=== PATIENT | male | born 1995 | race Caucasian/White ===

== ENCOUNTER 2023-06-19 14:57 | Emergency (ER) | payer OTHER, SELFPAY ==
--- NOTE | ~2023-06-19 | XR_ITS ---
EXAMINATION: XR chest 2V DATE: 06/19/2023 15:28 INDICATION: Chest pain, shortness of breath and intermittent dizziness TECHNIQUE: PA and lateral views of the chest were obtained. COMPARISON: None FINDINGS: The lungs are clear with no focal airspace opacities, pulmonary edema, pleural effusion or pneumothor ax. The cardiomediastinal silhouette is normal. Chronic mild anterior wedging of a midthoracic verteb ral body. IMPRESSION: 1. No acute cardiopulmonary disease. Reviewed, dictated and finalized at location A. RDOUS SUBSTANCES SCIENTIST
--- NOTE | 2023-06-19 14:59 | ECG_ITS ---
Measurements Intervals [place] Rate: 74 P: 39 [place]: 145 QRS: 66 QRSD: 101 T: 24 QT: 367 QTc: 409 Interpretive Statements SINUS RHYTHM INCOMPLETE RIGHT BUNDLE BRANCH BLOCK BORDERLINE ECG NO PREVIOUS ECG AVAILABLE FOR COMPARISON Electronically Signed On 06-19-2023 16:54:47 HANDMADE TILE ARTIST by Max Gastelum D.O.
[2023-06-19 15:00] VITALS: BP 157/92; PULSE 78; RESP 20; TEMP 36.2; O2SAT 100
[2023-06-19 15:19] LABS: Basophils Percent Auto 0.7 % (0.2-1.2); Eosinophils Absolute Auto 0.1 K/mm3 (0-0.3); Eosinophils Percent Auto 1.5 % (0-4.4); Hematocrit 45.2 % (42.0-52.0); Hemoglobin 15.4 g/dL (14.0-18.0); Immature Granulocyte Absolute 0.04 K/mm3 (0.00-0.031); Immature Granulocyte Percent A 0.7 % (0-0.5); Lymphocytes Absolute Auto 2.11 K/mm3 (0.9-3.2); Lymphocytes Percent Auto 34.8 % (18.3-44.2); Mean Corpuscular HGB Conc 34.1 g/dl (32-36); Mean Corpuscular Hemoglobin 29.2 pg (26-34); Mean Corpuscular Volume 85.6 fl (80-100); Mean Platelet Volume 8.4 fl (7.4-10.4); Monocytes Absolute Auto 0.5 K/mm3 (0.1-0.6); Monocytes Percent Auto 8.6 % (2.6-8.5); Neutrophils Absolute Auto 3.3 K/mm3 (1.3-6.7); Neutrophils Percent Auto 53.7 % (45.5-73.1); Platelet Count Result 257 k/mm3 (150-375); Red Blood Count 5.28 M/mm3 (4.6-6.20); Red Cell Distribution Width 12.1 % (11.5-14.5); White Blood Count 6.1 K/mm3 (4.5-10.0)
[2023-06-19 15:29] LABS: Alanine Aminotransferase 50 U/L (6-50); Albumin Level 4.9 g/dL (3.5-5.1); Alkaline Phosphatase 69 U/L (38-126); Anion Gap 10 mmol/L (8-16); Aspartate Amino Transferase 40 U/L (17-59); Bilirubin,Total 0.6 mg/dL (0.2-1.3); Blood Urea Nitrogen 13 mg/dL (9-20); Calcium 9.5 mg/dL (8.4-10.2); Carbon Dioxide 26 mmol/L (22-30); Chloride 103 mmol/L (98-107); Estimated CRCL calculation 158 ml/min; Estimated Glomerular Filt Rate > 60; Glucose 91 mg/dL (65-110); Lipase 154 U/L (23-300); Potassium 4.2 mmol/L (3.4-5.0); Sodium 139 mmol/L (137-145)
[2023-06-19 15:34] LABS: Partial Thromboplastin Time 28.9 SECONDS (22.3-36.8)
[2023-06-19 15:41] LABS: Troponin I < 0.012 ng/mL (0.000-0.034)
[2023-06-19 19:00] VITALS: BP 149/92; PULSE 70; PULSE 79; RESP 18; O2SAT 100
--- NOTE | 2023-06-19 19:15 | ED.CHESTPAIN ---
HPI - Chest Pain General Chief Complaint: Chest Pain Stated Complaint: shortness of breath/cp Time Seen by Provider: 06/19/23 19:02 Source: patient Limitations: no limitations History of Present Illness HPI narrative: Patient is a 27-year-old male presents to the emergency department complaining of chest pain. Patient states he has been having this discomfort since Sunday with associated shortness of breath, noticed it 1st when he was working and it has been constant ever since, low grade intensity, denies any injuries pain the past, sore in the middle of his chest and does not radiate, describes it as an ache, states that the shortness of breath gets worse with exertion but has not noticed anything making his chest discomfort better or worse and he tried Tums without any relief. Patient denies anything regularly getting worse prompting him to come in for further evaluation today rather he called his primary care physician for total bili checked out. 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 and has been taking this for a while without any recent changes in just moved here from [facility] and has established care with a cash processor yet but he did have a [address] on June 01. Patient denies any history of blood clots or unilateral lower extremity swelling. Patient denies tobacco use, history of hypertension, history of diabetes, history of high cholesterol. Patient does admit to an uncle who had a heart attack at 58 years old and otherwise no early heart disease in family members. Patient denies vomiting, diarrhea, melena, hematochezia abdominal pain, diaphoresis, lightheadedness, recent injuries, recent illness, sore throat, nasal congestion, cough. Related Data Allergies Allergy/AdvReac Type Severity Reaction Status Date / Time No Known Allergies Allergy Verified 06/19/23 15:02 Review of Systems Review of Systems: A 10 system review of systems was completed on the patient and is negative except for what is stated in the HPI. Nursing and ancillary documentation was reviewed. PMFSH Comments At time of signature, I have reviewed and agree with nursing past medical, surgical, social and family history unless otherwise noted. Please see the nursing chart for further information. There is no relevant family history pertinent to the presenting complaint. Exam Narrative: CONST: No acute distress. Well nourished. HENMT: Head is normocephalic and atraumatic. Moist mucous membranes. No posterior oropharynx erythema. EYES: No conjunctival icterus, injection, or pallor. PERRL. NECK: No meningeal signs. RESP: Able to speak in full sentences. Normal respiratory effort. CTAB. CARDIO: Regular rate. Regular rhythm. 2+ DP and radial pulses bilaterally. GI: Nondistended. No tenderness to palpation. Soft. : No CVA tenderness to palpation. SKIN: No rashes or lesions noted on exposed skin. NEURO: Oriented x3. Moves all extremities. EXTREM/MSK/BACK: No pedal edema. PSYCH: Normal affect. Course Vital Signs Vital signs: Vital Signs Temperature 97.2 F L 06/19/23 15:00 Pulse Rate 78 06/19/23 15:00 Respiratory Rate 20 06/19/23 15:00 Blood Pressure 157/92 H 06/19/23 15:00 Pulse Oximetry 100 06/19/23 15:00 Temperature 97.2 F L 06/19/23 15:00 Pulse Rate 70 06/19/23 19:00 Respiratory Rate 18 06/19/23 19:00 Blood Pressure 149/92 H 06/19/23 19:00 Pulse Oximetry 100 06/19/23 19:00 MDM - Chest Pain MDM Narrative Medical decision making narrative: Patient presents with the above complaint. Initial vitals are remarkable for no significant abnormalities. Physical examination as noted above. Plan discussed: Aspirin 324 mg p.o., EKG, chest x-ray, laboratory analysis, continuous cardiac monitoring, continuous pulse oximetry. Given that the patient had a recent long distance car ride of 16 hours preceding the onset of the chest discomfo
--- NOTE | 2023-06-19 19:31 | ECG_ITS ---
Measurements Intervals [place] Rate: 72 P: 31 [place]: 152 QRS: 67 QRSD: 109 T: 16 QT: 406 QTc: 447 Interpretive Statements SINUS RHYTHM DELAYED PRECORDIAL R/S TRANSITION NONSPECIFIC T-WAVE ABNORMALITY- INFERIOR LEADS BASELINE ARTIFACT- I, III, AVR, AVL, AVF, V3-V6 BORDERLINE ECG COMPARED TO ECG 06/19/2023 15:13:04 T-WAVE ABNORMALITY NOW PRESENT Electronically Signed On 06-20-2023 7:42:06 SUPPORT ANALYST by Max Gastelum D.O.
[2023-06-19 20:00] LABS: Troponin I < 0.012 ng/mL (0.000-0.034)
[2023-06-19 20:13] LABS: Influenza A QL RT-PCR Negative (Negative); Influenza B QL RT-PCR Negative (Negative); SARS-CoV-2 RNA PCR Negative (Negative)
[2023-06-19 21:01] VITALS: BP 165/102; PULSE 78; RESP 20; O2SAT 100
== END 2023-06-19 21:05 | disposition home or self-care (01) ==
PROVIDERS: Emergency Medicine; Emergency Provider Student in an Organized Health Care Education/Training Program
DX: R07.89 Other chest pain (principal); Z20.822 Contact with and (suspected) exposure to COVID-19
CPT/HCPCS: 36415; 71046; 80053; 83690; 84484; 85025; 85380; 85610; 85730; 87636; 93005; 99284

== ENCOUNTER 2023-08-21 09:56 | Emergency (ER) | payer OTHER, SELFPAY ==
--- NOTE | ~2023-08-21 | XR_ITS ---
EXAMINATION: XR chest 2V DATE: 08/21/2023 10:24 INDICATION: Chest pain and weakness TECHNIQUE: PA and lateral views of the chest are obtained. COMPARISON: 06/19/2023 FINDINGS: The lungs are free of acute opacities. No pleural effusion or pneumothorax. The cardiomedia stinal silhouette is normal. The visualized bones and soft tissues are unremarkable. IMPRESSION: 1. No acute cardiopulmonary abnormality. Reviewed, dictated and finalized at location L. STEWARD
--- NOTE | 2023-08-21 09:57 | ECG_ITS ---
Measurements Intervals [place] Rate: 59 P: 28 [place]: 146 QRS: 66 QRSD: 105 T: 6 QT: 373 QTc: 370 Interpretive Statements SINUS BRADYCARDIA NONSPECIFIC ST & T-WAVE ABNORMALITY- INFERIOR LEADS BORDERLINE ECG COMPARED TO ECG 06/19/2023 19:41:15 SINUS BRADYCARDIA NOW PRESENT Electronically Signed On 08-21-2023 10:49:39 TABLET MACHINE OPERATOR by Max Gastelum D.O.
[2023-08-21 10:07] VITALS: BP 144/77; PULSE 62; RESP 18; TEMP 36.4; O2SAT 100
[2023-08-21 10:14] LABS: Basophils Absolute Auto 0.1 K/mm3 (0.0-0.1); Basophils Percent Auto 0.9 % (0.2-1.2); Eosinophils Absolute Auto 0.1 K/mm3 (0-0.3); Eosinophils Percent Auto 1.7 % (0-4.4); Hematocrit 49.3 % (42.0-52.0); Hemoglobin 16.7 g/dL (14.0-18.0); Immature Granulocyte Absolute 0.02 K/mm3 (0.00-0.031); Immature Granulocyte Percent A 0.3 % (0-0.5); Lymphocytes Absolute Auto 2.54 K/mm3 (0.9-3.2); Lymphocytes Percent Auto 40.2 % (18.3-44.2); Mean Corpuscular HGB Conc 33.9 g/dl (32-36); Mean Corpuscular Hemoglobin 28.8 pg (26-34); Mean Corpuscular Volume 85.1 fl (80-100); Mean Platelet Volume 8.7 fl (7.4-10.4); Monocytes Absolute Auto 0.6 K/mm3 (0.1-0.6); Monocytes Percent Auto 9.7 % (2.6-8.5); Neutrophils Percent Auto 47.2 % (45.5-73.1); Platelet Count Result 264 k/mm3 (150-375); Red Blood Count 5.79 M/mm3 (4.6-6.20); Red Cell Distribution Width 12.4 % (11.5-14.5); White Blood Count 6.3 K/mm3 (4.5-10.0)
[2023-08-21 10:23] LABS: Prothrombin Time 13.4 Seconds (11.1-14.7)
[2023-08-21 10:24] LABS: Partial Thromboplastin Time 29.9 SECONDS (22.3-36.8)
[2023-08-21 10:25] LABS: Alanine Aminotransferase 44 U/L (6-50); Alkaline Phosphatase 66 U/L (38-126); Anion Gap 10 mmol/L (8-16); Aspartate Amino Transferase 29 U/L (17-59); Bilirubin,Total 0.6 mg/dL (0.2-1.3); Blood Urea Nitrogen 10 mg/dL (9-20); Calcium 9.8 mg/dL (8.4-10.2); Carbon Dioxide 24 mmol/L (22-30); Chloride 104 mmol/L (98-107); Estimated CRCL calculation 153 ml/min; Estimated Glomerular Filt Rate > 60; Glucose 104 mg/dL (65-110); Lipase 153 U/L (23-300); Potassium 3.8 mmol/L (3.4-5.0); Sodium 138 mmol/L (137-145)
[2023-08-21 10:36] LABS: Troponin I < 0.012 ng/mL (0.000-0.034)
--- NOTE | 2023-08-21 12:18 | ED.CHESTPAIN ---
HPI - Chest Pain General Chief Complaint: Chest Pain <Jason TYSON Villa - Last Filed: 08/21/23 12:30> Stated Complaint: chest pain <Jason TYSON Villa - Last Filed: 08/21/23 12:30> Time Seen by Provider: 08/21/23 12:18 <Jason TYSON Villa - Last Filed: 08/21/23 12:30> MSE exam was performed at 12:20 p.m.. Warren is a 28-year-old male patient presenting to the emergency room with complaints of left-sided chest discomfort times 4 days. He reports he is also having some fatigue. Denies any URI symptoms. Denies any shortness of breath associated with his chest discomfort. Denies any heavy lifting recently. States he feels extremely fatigued. He does not take any medications on a regular basis. Focused HPI: General: Well-developed, well nourished, in no apparent distress Head: Normocephalic, atraumatic Eyes: Pupils equally round and reactive to light bilaterally, EOM intact, sclera and conjunctive clear, no discharge, lids normal Ears: TMs intact and clear, ear canals clear, no drainage, grossly hearing normal. Nose: Nares patent, no discharge, no inflammation, no sinus tenderness. Mouth: Oropharynx without lesions or masses, good dentition, MMM. Neck: Supple, trachea midline, no enlargement of anterior or posterior cervical nodes, no thyroid masses or goiter palpable. Chest wall: Mild tender to palpation over the left chest wall, no bruising or swelling, even rise and fall of the chest wall with respirations Cardio: Regular rate and rhythm, s1 and s2 normal, no murmur appreciated. Resp: Clear to auscultation bilaterally anteriorly and posteriorly, no rhonchi, rales, wheezing or rubs Extremities: No deformity, no edema, no cyanosis, capillary refill less than 2 seconds, peripheral pulses palpable and strong. Integumentary: [place], warm, and dry, intact without lesion, no rashes. Patient screened in triage and initial orders placed. Additional care and disposition to be based upon diagnostic testing and treatment. Blood workup, chest x-ray, and EKG were reviewed. Labs and chest x-ray are within normal limits. EKG shows sinus Rc heart rate of 59. Will order a COVID, flu, RSV test <Jason ChampagnezakimaximilianoTYSON - Last Filed: 08/21/23 12:30> Source: patient <Jason Villa APRN - Last Filed: 08/21/23 12:30> Mode of arrival: ambulatory <Jason ChampagnezakimaximilianoTYSON - Last Filed: 08/21/23 12:30> Limitations: no limitations <Jason GreenmargueritemaximilianoTYSON - Last Filed: 08/21/23 12:30> History of Present Illness HPI narrative: 28-year-old male presenting with intermittent chest pain and generalized malaise for 3-4 days. Reports fatigue and mild shortness of breath, no cough, fevers, sore throat. Further history as above. <Alyssa Ferrer MD - Last Filed: 08/21/23 21:36> Related Data Allergies/Adverse Reactions: Allergies Allergy/AdvReac Type Severity Reaction Status Date / Time No Known Allergies Allergy Verified 08/21/23 09:56 <Jasonazam Villa APRN - Last Filed: 08/21/23 12:30> Review of Systems Review of Systems: All systems reviewed & are unremarkable except as noted in HPI and below <Alyssa Ferrer MD - Last Filed: 08/21/23 21:36> PMFSH Comments At the time of my signature, I reviewed and agree with the nursing past medical, surgical, social, and family history. There is no relevant family history pertinent to the patient complaint. <Jason TYSON Villa - Last Filed: 08/21/23 12:30> Exam Narrative: GENERAL: Well-appearing, nontoxic, no acute distress, pleasant cooperative HEAD: Normocephalic, atraumatic. EYES: PERRLA and EOMI. No nystagmus ENT: Mucous membranes moist. NECK: Supple. CHEST: Clear to auscultation. No respiratory distress. HEART: Regular rate and rhythm EXTREMITIES: Normal range of motion. No edema. SKIN: Warm, dry, no rash. NEURO: No focal deficits. Alert and oriented x3. 5/5 strength in al
[2023-08-21 13:14] LABS: Influenza A QL RT-PCR Negative (Negative); Influenza B QL RT-PCR Negative (Negative); RSV RNA, RT-PCR Negative (Negative); SARS-CoV-2 RNA PCR Negative (Negative)
--- NOTE | 2023-08-21 13:30 | ECG_ITS ---
Measurements Intervals [place] Rate: 62 P: 17 [place]: 169 QRS: 60 QRSD: 104 T: -15 QT: 396 QTc: 405 Interpretive Statements SINUS RHYTHM NONSPECIFIC ST & T-WAVE ABNORMALITY- INFERIOR LEADS BORDERLINE ECG COMPARED TO ECG 08/21/2023 10:01:19 SINUS RHYTHM NOW PRESENT Electronically Signed On 08-21-2023 15:33:29 BRICKLAYER PAVING BRICK by Max Gastelum D.O.
[2023-08-21 14:04] LABS: Troponin I < 0.012 ng/mL (0.000-0.034)
== END 2023-08-21 15:03 | disposition home or self-care (01) ==
PROVIDERS: Nurse Practitioner Family; Student in an Organized Health Care Education/Training Program; Emergency Provider Emergency Medicine
DX: R07.89 Other chest pain (principal); R42 Dizziness and giddiness; Z20.822 Contact with and (suspected) exposure to COVID-19; R00.1 Bradycardia, unspecified; R94.31 Abnormal electrocardiogram [ECG] [EKG]
CPT/HCPCS: 36415; 71046; 80053; 83690; 84484; 85025; 85610; 85730; 87637; 93005; 99284